=== PATIENT | female | born 1965 | race Caucasian/White ===

== ENCOUNTER 2022-12-09 13:03 | Emergency (ER) | payer BC, SELFPAY ==
[2022-12-09 13:13] VITALS: BMI 20.9
[2022-12-09 13:18] VITALS: BP 177/135; PULSE 53; RESP 18; TEMP 37.2; O2SAT 100
--- NOTE | 2022-12-09 13:30 | ECG_ITS ---
[facility] Test Date: 2022-12-09 Pat Name: Ortega Higginbotahm Department: Room: Gender: Female Air Value Tester: : 1965 Requested By: Yogi Edouard Order Number: [id number] Stewart MD: José Miguel Santillan M.D. Measurements Intervals [place] Rate: 50 P: 62 HI: 156 QRS: 58 QRSD: 86 T: 67 QT: 434 QTc: 398 Interpretive Statements SINUS BRADYCARDIA POSSIBLE RIGHT VENTRICULAR CONDUCTION DELAY [RSR (QR) IN V1/V2] No previous ECG available for comparison Electronically Signed On 12-09-2022 15:47:28 CDT by José Miguel Santillan M.D. [id number]
[2022-12-09] MEDS: ondansetron 2 mg/ML SDV 2 mL 4 MG IVP (13:52)
[2022-12-09] MEDS: sodium chloride 0.9% 1,000 ML 999 ML IV (13:52)
[2022-12-09 14:14] VITALS: RESP 18; O2SAT 100
[2022-12-09] MEDS: morphine 4 mg/mL SDV 1 mL 2 MG IVP (14:14)
[2022-12-09 14:25] LABS: Basophils % 0.3 %; Eosinophils % 0.2 %; Hematocrit 36.5 % (37.0-47.0); Hemoglobin 11.8 g/dL (11.5-15.3); Lymphocytes # 1.8 10^3/uL (0.8-4.8); Lymphocytes % 15.8 %; Mean Corpuscular HGB Conc 32.3 g/dL (30.0-36.0); Mean Corpuscular Hemoglobin 29.7 pg (28.0-34.0); Mean Corpuscular Volume 91.9 fl (81-99); Monocytes # 0.4 10^3/uL (0.2-0.9); Monocytes % 3.9 %; Neutrophils # 8.94 10^3/uL (1.8-7.7); Neutrophils % 79.5 %; Nucleated Red Blood Cells % 0 %; Platelet Count 272 10^3/cmm (130-400); Red Blood Count 3.97 10^6/uL (4.1-5.3); Red Cell Distribution Width 12.5 % (12.1-15.1); White Blood Count 11.2 10^3/uL (4.0-10.0)
--- NOTE | 2022-12-09 14:29 | ED_ITS ---
HPI - Abdominal Pain General: Chief Complaint: Abdominal Pain Stated Complaint: severe abd pain Time Seen by Provider: 12/09/22 13:20 Source: patient Mode of arrival: ambulatory History of Present Illness: 57-year-old female presents emergency room with complaints of right-sided abdominal pain that began this morning. She denies any hematuria denies any dysuria urgency or frequency. Denies any medic easier melena. Pain began in the right lower quadrant has persisted there is been very nauseous but no vomiting she has not had any diarrhea she never previously had pain like this before. She has had sections but has not had hysterectomy appendectomy or cholecystectomy. MD elicited complaint: abdominal pain Onset (ago): hour(s) Pain Consistency: constant Location: RLQ Quality: cramping Radiation: RLQ Exacerbating factors: nothing Relieving factors: nothing Associated Symptoms: Denies anorexia, belching, bloating, change in bowel habits, change in stool character, chills, coffee ground emesis, constipation, GI cramping, diarrhea, dyspepsia, dysuria, excessive flatus, fever(s), heartburn, hematochezia, hematuria, hematemesis, fecal incontinence, loose stools, melena, nausea, poor appetite, syncope and vomiting Review of Systems Const: Denies: fever(s) or chills Card: Denies: chest pain, palpitations or syncope Resp: Denies: dyspnea, productive cough or non-productive cough GI: Denies: nausea, vomiting, hematemesis, coffee ground emesis, heartburn, diarrhea, constipation, bloating, GI cramping, belching, excessive flatus, fecal incontinence, change in bowel habits, change in stool character, hematochezia or melena : Denies: dysuria, urinary frequency, urinary urgency or hematuria Skin/Breast: Denies: rash or pruritus Physical Exam Const: GENERAL APPEARANCE: cooperative and comfortable ORIENTATION/CON SCIOUSNESS: Yes awake, Yes oriented to person, Yes oriented to place and Yes oriented to time HENMT: COMMON NORMALS: normocephalic, atraumatic and hearing grossly normal bilaterally HEAD & SCALP: normocephalic and atraumatic Resp: COMMON NORMALS: normal respiratory effort, No retractions, No use of accessory muscles and clear to auscultation bilaterally AUSCULTATION: clear to auscultation bilaterally Cardio: COMMON NORMALS: regular rate, regular rhythm and No murmurs present (Cardio) RATE: regular rate RHYTHM: regular rhythm GI: COMMON NORMALS: No hepatosplenomegaly present AUSCULTATION: Yes normoactive bowel sounds PALPATION: Yes Tenderness to palpation present (GI) Details: RLQ, No Guarding due to palpation present (GI) and Yes No hepatosplenomegaly present OTHER: Minimal discomfort with percussion : COMMON NORMALS: Yes no CVA tenderness BLADDER/KIDNEY EXAM: Yes no CVA tenderness Back/Pelvis: COMMON NORMALS: no CVA tenderness Extremity: COMMON NORMALS: normal to inspection, capillary refill normal, no clubbing, cyanosis or edema, no calf tenderness and no pedal edema Neuro: SENSORIUM/ORIENTATION: Yes oriented to person, Yes oriented to place and Yes oriented to time Skin: COMMON NORMALS: no rashes or lesions noted GENERAL SKIN EXAM: no rashes or lesions noted Course Vital Signs: Vital signs: Vital Signs Temperature 98.9 F 12/09/22 13:18 Pulse Rate 53 L 12/09/22 16:13 Respiratory Rate 16 12/09/22 15:38 Blood Pressure 100/79 12/09/22 15:30 Pulse Oximetry 98 12/09/22 16:13 Oxygen Delivery Me thod Room Air 12/09/22 15:30 MDM - Abdominal Pain Medical Decision Making Right nephrolithiasis 4.4 mm stone discussed with the patient. Pain is well controlled this time discharge home with oral pain medications tamsulosin filter urine. No evidence of cystitis does not require antibiotics return if pain is uncontrolled Case management make arrangements for follow-up with urology Medical Records I reviewed the patient's medical records. Lab Data I reviewed the patient's lab results. 12/09/22 14:14 12/09/22 14:14 Labs/Radiology: Radiology Impressions Abdomen/Pelvis CT 12/09/22 14:36 IMPRESSION: 1. Mild RIGHT hydroureteronephrosis secondary to 4.4 mm calcification in the distal RIGHT ureter. There may be an additional tiny 2 mm calcification. 2. Nonobstructing 3 mm calcifications RIGHT renal pelvis. 3. Normal appendix. Laboratory Results WBC 11.2 10^3/uL (4.0-10.0) H 12/09/22 14:14 RBC 3.97 10^6/uL (4.1-5.3) L 12/09/22 14:14 Hgb 11.8 g/dL (11.5-15.3) 12/09/22 14:14 Hct 36.5 % (37.0-47.0) L 12/09/22 14:14 MCV 91.9 fl (81-99) 12/09/22 14:14 MCH 29.7 pg (28.0-34.0) 12/09/22 14:14 MCHC 32.3 g/dL (30.0-36.0) 12/09/22 14:14 RDW 12.5 % (12.1-15.1) 12/09/22 14:14 Plt Count 272 10^3/cmm (130-400) 12/09/22 14:14 MPV 10.0 fL (7.4-10.4) 12/09/22 14:14 Neut % (Auto) 79.5 % 12/09/22 14:14 Lymph % (Auto) 15.8 % 12/09/22 14:14 [place] % (Auto) 3.9 % 12/09/22 14:14 Eos % (Auto) 0.2 % 12/09/22 14:14 Baso % (Auto) 0.3 % 12/09/22 14:14 Neut # (Auto) 8.94 10^3/uL (1.8-7.7) H 12/09/22 14:14 Lymph # (Auto) 1.8 10^3/uL (0.8-4.8) 12/09/22 14:14 [place] # (Auto) 0.4 10^3/uL (0.2-0.9) 12/09/22 14:14 Eos # (Auto) 0.0 10^3/uL (0.0-0.8) 12/09/22 14:14 Baso # (Auto) 0.0 10^3/uL (0.0-0.1) 12/09/22 14:14 Nucleated RBC % (auto) 0 % 12/09/22 14:14 Nucleated RBCs # 0.0 /100WBC 12/09/22 14:14 Sodium 139 mmol/L (136-145) 12/09/22 14:14 Potassium 3.9 mmol/L (3.5-5.1) 12/09/22 14:14 Chloride 105 mmol/L (98-107) 12/09/22 14:14 Carbon Dioxide 21 mmol/L (22-29) L 12/09/22 14:14 Anion Gap 16.9 (5-19) 12/09/22 14:14 BUN 12 mg/dL (6-20) 12/09/22 14:14 Creatinine 1.1 mg/dL (0.5-0.9) H 12/09/22 14:14 GFR Calculation 51.2 mL/min (90-130) L 12/09/22 14:14 Glucose 121 mg/dL (65-115) H 12/09/22 14:14 Calculated Osmolality 289 mOsm/kg (285-295) 12/09/22 14:14 Calcium 9.1 mg/dL (8.5-10.5) 12/09/22 14:14 Total Bilirubin 0.5 mg/dL (0.15-1.2) 12/09/22 14:14 AST 14 U/L (0-32) 12/09/22 14:14 ALT 9 U/L (0-33) 12/09/22 14:14 Alkaline Phosphatase 66 U/L (35-105) 12/09/22 14:14 Total Protein 6.8 g/dL (6.6-8.7) 12/09/22 14:14 Albumin 4.1 g/dL (3.5-5.2) 12/09/22 14:14 Globulin 2.7 g/dL (1.3-4.6) 12/09/22 14:14 Urine Color Yellow (Yellow) 12/09/22 14:36 Urine Appearance Cloudy (CLEAR) A 12/09/22 14:36 Urine pH 7 (5-7) 12/09/22 14:36 Ur Specific [place] 1.020 (1.005-1.030) 12/09/22 14:36 Urine Protein Neg (Negative) 12/09/22 14:36 Urine Glucose (UA) Norm (Normal) 12/09/22 14:36 Urine Ketones 1+ (Negative) H 12/09/22 14:36 Urine Blood 2+ (Negative) H 12/09/22 14:36 Urine Nitrate Negative (Negative) 12/09/22 14:36 Urine Bilirubin Neg (Negative) 12/09/22 14:36 Urine Urobilinogen 1 mg/dL (Negative) H 12/09/22 14:36 Ur Leukocyte Esterase Negative (Negative) 12/09/22 14:36 Urine RBC 5-10 /hpf (0-2) H 12/09/22 14:36 Urine WBC 0-4 /hpf (0-5) H 12/09/22 14:36 Ur Squamous Epith Cells 0-4 /hpf (0-5) H 12/09/22 14:36 Amorphous Sediment 3+ /hpf 12/09/22 14:36 Urine Bacteria Trace /hpf (NONE) 12/09/22 14:36 Urine Mucus 3+ /hpf 12/09/22 14:36 Discharge Plan Discharge Patient Disposition: Home Clinical Impression: Right nephrolithiasis Condition: Stable Prescriptions: New hydrocodone-acetaminophen 5-325 mg tablet 1 tab PO Q6H PRN (Reason: pain) Qty: 25 0RF promethazine 25 mg tablet 25 mg PO Q6H PRN (Reason: nausea and vomiting) Qty: 20 0RF tamsulosin 0.4 mg capsule 0.4 mg PO DAILY Qty: 30 0RF Discharge Orders: Discharge ED (Routine); Ordered 12/09/22 Ordered By: Yogi Paez Discharge Diet: Usual diet Discharge Activity: Increase activity as tolerated Patient Instructions: Kidney Stones (ED), Opioid Safety, Pain Management Activity Restrictions/Additional Instructions: Strain urine until stone is caught. Case management make follow-up with urology for you. Return to the emergency room if pain is not controlled. 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
--- NOTE | 2022-12-09 14:36 | CT_ITS ---
WS: [id number] CT ABDOMEN AND PELVIS NONCONTRAST HISTORY: Abdominal pain TECHNIQUE: Imaging performed through the abdomen and pelvis. Coronal and sagittal reformats are submi tted. All CT scans at [facility] use at least one of these dose optimization techniques: auto mated exposure control; mA and/or kV adjustment per patient size (includes targeted exams where dose is matched to clinical indication); or iterative reconstruction. DLP: 359.66 mGy.cm COMPARISON: None available. Lower thorax: Lung bases are clear. Visualized heart is normal. No hiatal hernia. Liver: Normal size liver. No mass or bile duct dilatation. Gallbladder: Normal gallbladder. No pericholecystic fluid or cholelithiasis. No gallbladder wall thic kening. Pancreas: Normal size and attenuation. Normal pancreatic duct. No pancreatitis or mass. Spleen: Normal. Adrenal glands: Normal. No mass. Right kidney: Mildly edematous RIGHT kidney. Nonobstructing 3 mm calcifications in the central pelvis . There is very minimal dilatation of the RIGHT ureter. Within the distal RIGHT ureter is a 4.4 mm ca lcification. There may be an adjacent tiny calcification of less than 2 mm also present. Left kidney: Normal size kidney with no mass or hydronephrosis. Aorta: Normal abdominal aorta, no aneurysm or atherosclerosis. No free fluid, intraperitoneal air or significant lymphadenopathy. GI tract: Normal appendix. Mild constipation. Abdominal wall: Negative. No hernia. Pelvis: No free fluid. Nondistended urinary bladder. Osseous structures: Unremarkable. CT/CT abdomen pelvis wo con [id number] IMPRESSION: 1. Mild RIGHT hydroureteronephrosis secondary to 4.4 mm calcification in the d istal RIGHT ureter. There may be an additional tiny 2 mm calcification. 2. Nonobstructing 3 mm calcifications RIGHT renal pelvis. 3. Normal appendix.
[2022-12-09 14:46] LABS: Alanine Aminotransferase 9 U/L (0-33); Albumin Level 4.1 g/dL (3.5-5.2); Alkaline Phosphatase 66 U/L (35-105); Anion Gap 16.9 (5-19); Aspartate Amino Transferase 14 U/L (0-32); Blood Urea Nitrogen 12 mg/dL (6-20); Calcium 9.1 mg/dL (8.5-10.5); Carbon Dioxide 21 mmol/L (22-29); Chloride 105 mmol/L (98-107); Globulin 2.7 g/dL (1.3-4.6); Glomerular Filtration Rate 51.2 mL/min (90-130); Glucose 121 mg/dL (65-115); Osmolality Calculated 289 mOsm/kg (285-295); Potassium 3.9 mmol/L (3.5-5.1); Sodium 139 mmol/L (136-145); Total Bilirubin 0.5 mg/dL (0.15-1.2); Total Protein 6.8 g/dL (6.6-8.7)
[2022-12-09 14:48] VITALS: BP 122/80; PULSE 54; O2SAT 92
[2022-12-09 15:07] LABS: Add Urine Culture? No; Add Urine Microscopic? YES; Amorphous Sediment Urine 3+ /hpf; Bacteria Urine TRACE /hpf; Bilirubin Urine Neg (Negative); Blood Urine 2+ (Negative); Glucose Urine UA Norm (Normal); Ketones Urine 1+ (Negative); Leukocyte Esterase Urine Negative (Negative); Mucus Urine 3+ /hpf; Nitrate Urine Negative (Negative); Protein Urine Neg (Negative); Squamous Epithelial Cell Urine 0-4 /hpf (0-5); Urine Appearance Cloudy (CLEAR); Urine Color Yellow (Yellow); Urobilinogen Urine 1 mg/dL (Negative); WBC Urine 0-4 /hpf (0-5); pH Urine 7 (5-7)
[2022-12-09 15:30] VITALS: BP 100/79; PULSE 51; RESP 14; O2SAT 99
[2022-12-09 15:38] VITALS: RESP 16; O2SAT 100
[2022-12-09] MEDS: morphine 4 mg/mL SDV 1 mL IVP (15:38)
[2022-12-09 16:13] VITALS: PULSE 53; O2SAT 98
--- NOTE | 2022-12-14 13:41 | DCPLANNER ---
district service manager had message to schedule a follow up appointment for patient with urology. district service manager called patient to confirm where patient wanted to be referred to, because of not having a urologist at [facility] at this time. Patient stated that she does not need the referral at this time, she is feeling better.
== END 2022-12-09 16:14 | disposition home or self-care (01) ==
PROVIDERS: Emergency Provider Family Medicine; PCP Family Medicine
DX: N13.2 Hydronephrosis with renal and ureteral calculous obstruction (principal)
CPT/HCPCS: 36415; 74176; 80053; 81001; 85025; 93005; 96374; 96375; 99285; J2270; J2405; J7030